=== PATIENT | male | born 1985 | race Hispanic/Latino ===

== ENCOUNTER 2018-07-24 17:20 | Emergency (ER) | payer SELFPAY ==
--- NOTE | 2018-07-24 17:51 | Emergency Department Report ---
Blank Doc - Documentation Documentation: This is a 32-year-old male that presents with left arm redness and blistering. Stated was outside. This initial assessment/diagnostic orders/clinical plan/treatment(s) is/are subject to change based on patient's health status, clinical progression and re- assessment by fellow clinical providers in the ED. Further treatment and workup at subsequent clinical providers discretion. Patient/guardians urged not to elope from the ED as their condition may be serious if not clinically assessed and managed. Initial orders include: 1- Patient sent to [facility] for further evaluation and treatment
[2018-07-24 19:02] VITALS: BP 122/82
== END 2018-07-24 19:41 | disposition left against medical advice (07) ==
LOC: ED 17:20
DX: M79.602 Pain in left arm (principal); Z53.21 Procedure and treatment not carried out due to patient leaving prior to being seen by health care provider